=== PATIENT | female | born 1960 | race Caucasian/White ===

== ENCOUNTER 2019-04-16 08:51 | Inpatient (IN) | payer OTHER ==
[2019-04-16] VITALS (7 sets, daily range): BP systolic 85–100; BP diastolic 39–49
[~2019-04-16] VITALS: Ht 177.8 cm; Wt 99.5 kg
[~2019-04-16 08:51] MED LIST: ASPI325T4 PO; B CO PO; BUPIVACAINE/DEXTROSE MPF 0.75% 2 ML AMP IT ONE; CHOL20007 PO; EPINEPHrine HCL 1 MG/1 ML AMP ONE; FLEC100T21 PO; MAGN500C PO; MIDAZOLAM HCL 1MG/1ML-2 ML VIAL ONE; MORPHINE SULF(PF) 0.5MG/ML 10ML VIAL ONE; ONDANSETRON HCL 4 MG/2 ML VIAL ONE; PROPOFOL 10 MG/ML 20 ML IV ONE; SODIUM CHLORIDE LOCK 10 ML ONE; SUMA50TA16 PO; TRAM50TA2 PO; [UNRECOGNIZED DRUG - CODE] PO; [UNRECOGNIZED DRUG - CODE] PO; fentaNYL CITRATE 100 MCG/2 ML VL ONE
[2019-04-16] MEDS ORDERED: ACETAMINOPHEN IV 1000 MG/100ML (10MG/ML) IV ONE (09:45)
[2019-04-16] MEDS ORDERED: PREGABALIN CAPSULE 75 MG CAP PO ONE (09:45)
[2019-04-16] MEDS ORDERED: CELECOXIB 100 MG CAP PO ONE (09:45)
[2019-04-16] MEDS ORDERED: ceFAZolin 1GM/50ML 100 ML IV ONE (10:03)
[2019-04-16] MEDS ORDERED: ACETAMINOPHEN IV 100 ML IV ONE (10:03)
[2019-04-16] MEDS ORDERED: TRANEXAMIC ACID 20 ML ONE (10:05)
[2019-04-16] MEDS ORDERED: BUPIVACAINE W/ EPINEPH 0.25% INJ 50ML MDV ONE (10:05)
[2019-04-16] MEDS ORDERED: KETOROLAC TROMETH 30 MG/ML 1ML VIAL ONE (10:07)
[2019-04-16] MEDS ORDERED: VANCOMYCIN HCL 1000 MG VL ONE (10:08)
[2019-04-16] MEDS ORDERED: TETRACAINE 1% INJ 2 ML VIAL IJ ONE (10:09)
[2019-04-16] MEDS ORDERED: MORPHINE SULF(PF) 0.5MG/ML 10ML VIAL ONE (10:12)
[2019-04-16] MEDS ORDERED: NALOXONE HCL 0.4 MG/ML VIAL IV PRN (12:00)
[2019-04-16] MEDS ORDERED: METOCLOPRAMIDE HCL 5MG/ml INJ 2ml VIAL IV PRN (12:00)
[2019-04-16] MEDS ORDERED: fentaNYL CITRATE 100 MCG/2 ML VL IV PRN (12:00)
[2019-04-16] MEDS ORDERED: HYDROmorphone HCL 2 MG/ML VL IV PRN (12:00)
[2019-04-16] MEDS ORDERED: diphenhdrAMINE HCL 50 MG/1 ML VL IV PRN (12:00)
[2019-04-16] MEDS ORDERED: MORPHINE SULFATE 4 MG/ML SYR/VIAL IV PRN (12:00)
[2019-04-16] MEDS ORDERED: traMADol HCL 50 MG TAB PO PRN (13:00)
[2019-04-16] MEDS ORDERED: NITROGLYCERIN 0.4 MG SL TAB SL PRN (13:00)
[2019-04-16] MEDS ORDERED: MORPHINE SULF INJ 2 MG/ML SYRINGE 1ML IV PRN (13:00)
[2019-04-16] MEDS ORDERED: ACETAMINOPHEN 325 MG TAB PO PRN (13:00)
[2019-04-16] MEDS ORDERED: BISACODYL 5 MG EC TAB PO PRN (13:00)
[2019-04-16] MEDS ORDERED: DOCUSATE SOD 100 MG CAP PO ONE (13:45)
[2019-04-16] MEDS ORDERED: ENOXAPARIN SOD 40 MG/0.4 ML SYRINGE SC ONE (13:45)
--- NOTE | 2019-04-16 14:35 | NUR ---
Telemetry admit from PACU Patient admitted to Telemetry unit after SBAR received from Emy MONTEMAYOR. Patient oriented to primary RN, unit, room, bed, and unit policies regarding patient care and visiting hours. Patient now on continuous telemetry monitoring, tele box #80 and telemetry reading on arrival to unit is SR in the 70's . Patient placed on bedside oxygen, weighed by bed scale and encouraged to call if they need something. Surgical dressing to left knee, clean/dry and intact. Bed in lowest, locked position with side rails up x2. Fall precautions in place and call light within reach. All questions and concerns addressed, patient verbalized understanding. Will continue to monitor Q1hr/PRN.
[2019-04-16] MEDS: LACTATED RINGER'S 1,000 ML IV SCH (15:15)
[2019-04-16] MEDS ORDERED: INFLUENZA QUAD 2019-2020 0.5ml SYRG IM ONE (16:15)
[2019-04-16] MEDS: ceFAZolin 1GM/50ML 50 ML IV SCH ×2 (17:10→19:33)
[2019-04-16] MEDS: ACETYLCYSTEINE 20%(200MG/ML) SOL 4ML PO SCH ×2 (17:10→22:00)
[2019-04-16] MEDS: SODIUM CHLOR 0.9% PF (SALINE LOCK) 10ML VIAL/SYR IV SCH ×2 (17:11→22:33)
[2019-04-16] MEDS: CHOLECALCIFEROL (VITD3) 1,000 UNIT TAB PO SCH (17:11)
[2019-04-16] MEDS: ONDANSETRON HCL 4 MG/2 ML VIAL IV PRN (18:29)
--- NOTE | 2019-04-16 19:35 | NUR ---
Opening Shift Note Received report from Shira MONTEMAYOR. Assumed care of patient, awake and alert, family at bedside. No S/S of distress/SOB or pain. Instructed on POC and to call for assist PRN. Fall precaution measures in place, will continue to monitor for changes Q1hr and PRN.
[2019-04-16] MEDS ORDERED: METOPROLOL TARTRATE 1MG/1ML-5ML VIAL IV PRN (21:00)
[2019-04-16] MEDS: DOCUSATE SOD 100 MG CAP PO SCH (22:00)
[2019-04-16] MEDS: TAMBOCOR PO SCH (22:00)
[2019-04-17] VITALS (14 sets, daily range): BP systolic 94–135; BP diastolic 43–82
[2019-04-17] MEDS: ceFAZolin 1GM/50ML 50 ML IV SCH (01:07)
--- NOTE | 2019-04-17 05:45 | NUR ---
Respiratory note: PT REMOVED FROM CPAP PER PT REQUEST AND HAS BEEN PLACED ON A 1L NC. POC 98%, HR 73, RR 14. NO SOB NOTED. CONTINUOUS POX REMAINS ON AND FUNCTIONAL. ALARMS ARE ON AND AUDIBLE.
[2019-04-17] MEDS: SODIUM CHLOR 0.9% PF (SALINE LOCK) 10ML VIAL/SYR IV SCH ×3 (05:59→21:57)
[2019-04-17] MEDS ORDERED: METO25TA5 PO (06:52)
[2019-04-17 07:06] LABS: Basophils # (auto) 0 uL; Basophils % (auto) 0.1 % (0.0-2.0); Eosinophils # (auto) 0 uL; Hematocrit 34.3 % (36.0-46.0); Hemoglobin 11.6 g/dL (12.2-16.2); Lymphocytes # (auto) 0.9 uL; Lymphocytes % (auto) 8.9 % (10.0-50.0); Mean Corpuscular Hemoglobin 30.3 pg (28.0-32.0); Mean Corpuscular Hgb Conc. 33.9 g/dL (32.0-36.0); Mean Corpuscular Volume 89.3 fL (80.0-100.0); Monocytes # (auto) 0.7 uL; Monocytes % (auto) 6.9 % (0.0-12.0); Neutrophils # (auto) 8.2 uL; Neutrophils % (auto) 84.1 % (37.0-80.0); Platelet Count (auto) 176 10^3/uL (140-450); Red Blood Cells 3.84 10^6/uL (4.0-5.20); Red Cell Distribution Width 13.6 % (11.8-14.3); White Blood Cell 9.8 10^3/uL (4.4-10.8)
[2019-04-17 07:15] LABS: Potassium 4.3 mmol/L (3.5-5.1)
[2019-04-17 07:19] LABS: Albumin 3.3 g/dL (3.4-5.0); BUN/Creatinine Ratio 21.9; Calcium 8.2 mg/dL (8.5-10.1); Magnesium 2.2 mg/dL (1.6-2.6)
[2019-04-17 07:22] LABS: Bilirubin, Total 0.4 mg/dL (0.2-1.0); Total Protein 6.2 g/dL (6.4-8.2)
--- NOTE | 2019-04-17 07:35 | NUR ---
OPENING NOTE Assumed care of patient from NOC RNSilvana. Patient awake and alert with no S/S of distress/SOB or pain. Nasal cannula in place, connected to 1L O2. Surgical dressing to left knee, clean /dry/intact and CPM machine is in use. Right leg connected to SCD. Bed in lowest, locked position with side rails up x2. Fall precautions in place and call light within reach. Instructed on POC and to call for assistance PRN, verbalized understanding. Will continue to monitor for changes Q1hr and PRN.
[2019-04-17] MEDS: LACTATED RINGER'S 1,000 ML IV SCH ×3 (08:57→18:06)
[2019-04-17] MEDS ORDERED: METOPROLOL TARTRATE 25 MG TAB PO SCH (10:00)
[2019-04-17] MEDS: ENOXAPARIN SOD 40 MG/0.4 ML SYRINGE SC SCH (11:11)
[2019-04-17] MEDS: DOCUSATE SOD 100 MG CAP PO SCH ×2 (11:11→21:58)
[2019-04-17] MEDS: ACETYLCYSTEINE 20%(200MG/ML) SOL 4ML PO SCH ×2 (11:12→22:00)
[2019-04-17] MEDS: OXYCODONE W/ ACETAMINOPHEN 5/325MG TABLET PO PRN ×2 (11:13→15:30)
[2019-04-17] MEDS: TAMBOCOR PO SCH ×2 (11:29→21:58)
[2019-04-17] MEDS: METOPROLOL 25 MG PO SCH ×2 (11:29→21:57)
--- NOTE | 2019-04-17 13:00 | NUR ---
IV Infiltrated IV removed, catheter intact and pressure dressing applied. IV access obtained, via clean sterile technique by inserting 22 gauge catheter at left forearm after 1 attempt. IV secured properly. No trauma to site. Patient tolerated well.
[2019-04-17] MEDS: MORPHINE SULFATE 4 MG/ML SYR/VIAL IV PRN ×3 (13:06→21:35)
[2019-04-17] MEDS: ONDANSETRON HCL 4 MG/2 ML VIAL IV PRN ×3 (13:07→21:35)
--- NOTE | 2019-04-17 15:09 | NUR ---
Report Received report received for Marina MONTEMAYOR. Patient currently awake and alert laying down in bed. Patient is on room air with No S/S of distress/SOB. Pt C/O pain in knee 04/05. will dry cleaning teacher Percocet. Patient educated on fall precautions. Bed is in lowest position, wheels are locked, side rails up x2, and call light is within reach. Encouraged patient to call as needed. Will continue to monitor changes q1hr and PRN.
--- NOTE | 2019-04-17 15:15 | NUR ---
RECEIVED REPORT FROM RESOURCE NURSE ASSUMED CARE OF PT. PATIENT IS AWAKE AND ALERT. NO SOB OR SIGNS OF DISTRESS NOTED. BED IS IN LOWEST POSITION WITH SIDE RAILS UP X2. INSTRUCTED PT TO CALL FOR ASSISTANCE PRN. WILL CONTINUE TO MONITOR.
[2019-04-17] MEDS: CHOLECALCIFEROL (VITD3) 1,000 UNIT TAB PO SCH (15:31)
--- NOTE | 2019-04-17 16:58 | NUR ---
Dr. bolton at bedside Updated on POC. Patient pain seems uncontrolled at this time. Received new orders at this time. orders carried out in [facility]. Will continue to monitor q1h and prn.
--- NOTE | 2019-04-17 17:05 | NUR ---
Report Given Patient awake and alert. No S/S of distress/SOB. Pain still 10/10, per Dr. bolton will give additional Morphine IV now and Zofran. Care endorsed to Will SIM.
--- NOTE | 2019-04-17 17:08 | NUR ---
assessment Patient is a 58 year old female who is alert and oriented. Patients cognitive abilities are intact. Prior to admission patient lived home with her sig other Geni Cannon and functioned independently. Patient informed me she is able to care for her own ADLs. Per patient she will return home to her prior living arrangements post discharge and Geni will transport her home. Patient has been admitted for left knee replacement. Patient will need home health for PT, fww, and CPM. Will RN has been notified. Patients PCP is Dr Lacy. Patient feels safe returning home on discharge. I informed patient she has a right to speak to a social media editor regarding all care. I informed patient she has a right to participate in any and all discharge planning. Patient has a POA and advanced directive. Patient verbalized understanding and agreed to discharge plan. Addendum: 04/17/19 at 1712 by Jasmin WARNER Amended: Links added.
[2019-04-17] MEDS ORDERED: MORPHINE SULF INJ 2 MG/ML SYRINGE 1ML IV ONE (17:15)
[2019-04-17] MEDS ORDERED: HYDROMORPHONE PCA IN NS 50 ML IV SCH (19:28)
--- NOTE | 2019-04-17 19:30 | NUR ---
Opening Shift Note Assumed care of patient, awake and alert. No S/S of distress/SOB. Family at bedside. Instructed on POC and to call for assist PRN, will continue to monitor for changes Q1hr and PRN.
--- NOTE | 2019-04-17 19:45 | NUR ---
Dr. Oseguera at bedside.
--- NOTE | 2019-04-17 22:30 | NUR ---
Began DIP FILLER pump as ordered. VS WNL. Patient unable to tolerate CPM, CPM removed. Provided patient education regarding DIP FILLER pump. Will continue to monitor.
--- NOTE | 2019-04-17 23:30 | NUR ---
Dressing change performed on left knee. Ethel are clean, dry and intact with no drainage. No drainage noted on original dressing. Cleansed with wound cleanser spray and patted dry with gauze. Placed island dressing and covered with kevin bandage. Patient tolerated well.
[2019-04-18] MEDS: OXYCODONE W/ ACETAMINOPHEN 5/325MG TABLET PO PRN (01:25)
[2019-04-18 04:57] VITALS: BP 115/68
[2019-04-18] MEDS: LACTATED RINGER'S 1,000 ML IV SCH ×2 (04:57→14:19)
[2019-04-18] MEDS: SODIUM CHLOR 0.9% PF (SALINE LOCK) 10ML VIAL/SYR IV SCH ×3 (06:24→22:59)
[2019-04-18] MEDS: DOCUSATE SOD 100 MG CAP PO SCH ×3 (06:24→23:01)
--- NOTE | 2019-04-18 07:18 | NUR ---
Opening Shift Note Assumed care of patient, patient awake and alert laying down in bed. Patient is on 2 L NC with even and unlabored respirations. No S/S of distress/SOB or pain at this time. CPM in place with SCD'S. LINK ASSEMBLER still currently running. Order to D/C present per Dr. Austin. LINK ASSEMBLER stopped at this time. POC regarding pain reviewed with patient. patient verbalizes understanding. Bed is in lowest position, wheels are locked, side rails up x2, and call light is within reach. Patient educated regarding fall precaution and instructed to not get up without help. Patient verbalized understanding. Instructed on POC and to call for assist PRN, will continue to monitor for changes Q1hr and PRN.
[2019-04-18 07:44] LABS: Hematocrit 35.2 % (36.0-46.0); Hemoglobin 12.1 g/dL (12.2-16.2)
--- NOTE | 2019-04-18 07:48 | NUR ---
Respiratory note: PT IS AWAKE, AND ALERT. NO RESPIRATORY DISTRESS NOTED. SPO2 97% ON RA, HR 69, RR 18, BS CLEAR T/O. PT INFORMED TO PUSH CALL BUTTON IF INCREASED WOB, SOB, OR WHEEZING OCCURS.
--- NOTE | 2019-04-18 08:25 | NUR ---
AT BEDSIDE DR. COSME AT BEDSIDE EVALUATING PT. INFORMED DR. RE: PATIENT POOR PAIN CONTROL YESTERDAY/THROUGH THE NIGHT AND CURRENT POC RE: PAIN. AGREES WITH CURRENT PLAN SET UP BY DR. SANCHEZ. NO NEW ORDERS RECEIVED AT THIS TIME. WILL CONTINUE TO MONITOR Q1H AND PRN.
[2019-04-18 09:00] VITALS: BP 142/82
[2019-04-18] MEDS: oxyCODONE ER 10 MG TAB PO SCH ×2 (09:56→23:01)
[2019-04-18] MEDS: ENOXAPARIN SOD 40 MG/0.4 ML SYRINGE SC SCH (09:57)
[2019-04-18] MEDS: TAMBOCOR PO SCH ×2 (09:58→23:01)
[2019-04-18] MEDS: METOPROLOL 25 MG PO SCH ×2 (09:58→23:00)
[2019-04-18] MEDS: ACETYLCYSTEINE 20%(200MG/ML) SOL 4ML PO SCH ×2 (10:00→22:00)
--- NOTE | 2019-04-18 10:40 | NUR ---
PT WITH PATIENT. PT WITH PATIENT. PT UP WALKING WITH WALKER IN HALLWAY. PER PATIENT, PAIN IS STARTING COME BACK, WILL CIGAR PACKER AND SHADER PRN DILAUDID. WILL CONTINUE TO MONITOR Q1H AND PRN.
--- NOTE | 2019-04-18 11:02 | NUR ---
I called [employer] Safety Counselor Enriqueta [phone] and left message asking who to use for home health and authorization for same-also faxed request/order to her at [phone].
[2019-04-18] MEDS: ONDANSETRON HCL 4 MG/2 ML VIAL IV PRN ×2 (11:21→15:19)
[2019-04-18] MEDS: HYDROmorphone HCL 2 MG/ML VL IV PRN ×2 (11:21→15:18)
[2019-04-18 13:00] VITALS: BP 113/42
[2019-04-18] MEDS: CHOLECALCIFEROL (VITD3) 1,000 UNIT TAB PO SCH (13:51)
[2019-04-18] MEDS: KETOROLAC TROMETH 30 MG/ML 1ML VIAL IV SCH ×2 (13:51→18:00)
--- NOTE | 2019-04-18 14:00 | NUR ---
PATIENT STATES HAS PAIN IN UPPER POSTERIOR THIGH PATIENT CALLED STATING SHE HAS SUDDEN PAIN IN UPPER POSTERIOR THIGH AFTER BEING ON CPM NOW. CPM WAS JUST REMOVED TO BE FITTED FOR HOME CPM MACHINE. NOTED SMALL SKIN TEAR ON LEFT UPPER POSTERIOR THIGH. WOUND PHOTOS TAKEN. WOUND CLEANSED WITH NORMAL SALINE, PATTED DRY, COVERED WITH NON ADHESIVE FOAM DRESSING AND COVERED WITH TEGADERM. PATIENT TOLERATED WELL. CONTINUE TO MONITOR Q1H AND PRN.
--- NOTE | 2019-04-18 14:12 | NUR ---
I received a message from Enriqueta at [facility] referring me to call Casting Plug Assembler Alex [phone]-I called and left a message asking for authorization for home health as well as a list of participating providers.
--- NOTE | 2019-04-18 16:33 | NUR ---
D/C Planning Per SS consult for home physical therapy for physical therapy, FWW and CPM machine. Noah Ph:) from [facility] department advised me FWW and CPM has been deliver to Pt at bedside. Home Health is pending due to waiting on Dianne CASE Ph:) to fax me a list of contacted providers.
[2019-04-18 17:00] VITALS: BP 108/56
--- NOTE | 2019-04-18 19:13 | NUR ---
Closing Note Patient awake and alert laying in bed currently on CPM machine. Patient is on 2 L NC with even and unlabored respirations with no S/S of distress/SOB or pain. Care endorsed to NOC SIM Zamora.
--- NOTE | 2019-04-18 19:30 | NUR ---
Opening Shift Note Assumed care of patient, awake and alert. No S/S of distress/SOB. Instructed on POC and to call for assist PRN, will continue to monitor for changes Q1hr and PRN.
[2019-04-18 21:50] VITALS: BP 114/53
--- NOTE | 2019-04-18 22:00 | NUR ---
Patient states that she is 6 of 10 pain which is tolerable. Explained to patient regarding scheduled pain medication.
[2019-04-19] VITALS (7 sets, daily range): BP systolic 104–124; BP diastolic 53–70
[2019-04-19] MEDS: KETOROLAC TROMETH 30 MG/ML 1ML VIAL IV SCH ×4 (00:22→17:59)
[2019-04-19] MEDS: LACTATED RINGER'S 1,000 ML IV SCH ×3 (00:52→20:57)
--- NOTE | 2019-04-19 04:30 | NUR ---
Performed bladder training throughout the night and patient able to sit on commode in the am with minimal assistance. Patient only able to pass gas, no BM reported. Patient tolerated well.
[2019-04-19] MEDS: OXYCODONE W/ ACETAMINOPHEN 5/325MG TABLET PO PRN ×2 (05:00→20:59)
[2019-04-19] MEDS: SODIUM CHLOR 0.9% PF (SALINE LOCK) 10ML VIAL/SYR IV SCH ×3 (05:59→22:00)
[2019-04-19] MEDS: DOCUSATE SOD 100 MG CAP PO SCH ×3 (06:00→22:00)
[2019-04-19 07:39] LABS: Hematocrit 33.8 % (36.0-46.0); Hemoglobin 11.3 g/dL (12.2-16.2)
--- NOTE | 2019-04-19 07:40 | NUR ---
Opening Note Received report from masseur/masseuse RN. Patient is awake, alert and oriented x4. No signs or symptoms of distress noted at this time. Dressing to left knee , clean dry and intact. Patient is on room air, respirations even and unlabored. Reviewed plan of care with patient, patient verbalized understanding. Bed in low and locked position, call light within reach. Will continue to monitor Q1 hour and PRN.
--- NOTE | 2019-04-19 08:45 | NUR ---
Carmen catheter removed Order to discontinue Carmen catheter. Carmen removed with clean technique following deflation of balloon. Patient tolerated well, patient denies pain. Patient instructed to call for assistance. Will continue to monitor Q1 hour and PRN.
--- NOTE | 2019-04-19 09:07 | NUR ---
Spoke with Nisha regarding home health States she will let me know when it is arranged.
[2019-04-19] MEDS: ENOXAPARIN SOD 40 MG/0.4 ML SYRINGE SC SCH (09:44)
[2019-04-19] MEDS: oxyCODONE ER 10 MG TAB PO SCH ×2 (09:44→22:51)
[2019-04-19] MEDS: METOPROLOL 25 MG PO SCH ×2 (10:00→21:59)
[2019-04-19] MEDS: TAMBOCOR PO SCH ×2 (10:00→22:00)
--- NOTE | 2019-04-19 10:15 | NUR ---
Patient voided Patient assisted to bedside commode, patient voided. Patient assisted back to bed. Will continue to monitor Q1 hour and PRN.
[2019-04-19] MEDS: CHOLECALCIFEROL (VITD3) 1,000 UNIT TAB PO SCH (15:46)
--- NOTE | 2019-04-19 16:40 | NUR ---
Spoke with Nisha Unable to arrange home health for the patient today and states it is not safe to discharge the patient without having services arranged. Patient to discharge tomorrow. Charge nurse Sugey weinstein. WIll continue to monitor Q1 hour and PRN.
--- NOTE | 2019-04-19 16:49 | NUR ---
D/C Vandana Dean from [employer] faxed me three contracted providers for home health [facility], [place], [facility] and [facility]. Contacted and faxed [place] and [facility]. Per Janice from [place] they are not contacted with [facility]. Per Brenda from [facility] they do not cover [facility]. I was unable to get a hold of [facility] due to incorrect phone. Billie from [facility] from advised me if a KIANNA is done they will be able to tale Pt. Informed Lobby Concierge regarding home health and she stated she will follow up with insurance. Informed SIM Augustin.
--- NOTE | 2019-04-19 17:20 | NUR ---
Left Message for Dr. Alcantara Left message to notify him unable to discharge patient today, unable to arrange home health.
--- NOTE | 2019-04-19 19:12 | NUR ---
Closing Note Report given to night patrol inspector RN. No signs or symptoms of distress noted at this time.
[2019-04-20] MEDS: SODIUM CHLOR 0.9% PF (SALINE LOCK) 10ML VIAL/SYR IV SCH ×3 (06:17→23:11)
[2019-04-20] MEDS: OXYCODONE W/ ACETAMINOPHEN 5/325MG TABLET PO PRN ×3 (06:18→18:16)
[2019-04-20] MEDS: DOCUSATE SOD 100 MG CAP PO SCH ×3 (06:18→23:10)
[2019-04-20 06:28] VITALS: BP 115/64
[2019-04-20] MEDS: LACTATED RINGER'S 1,000 ML IV SCH ×2 (06:57→12:34)
--- NOTE | 2019-04-20 07:40 | NUR ---
Opening Note Received report from telecommunications clerk RN. Patient is awake, alert and oriented x4. No signs or symptoms of distress noted at this time. Dressing to left knee , clean dry and intact. Patient is on room air, respirations even and unlabored. Reviewed plan of care with patient, patient verbalized understanding. Bed in low and locked position, call light within reach. Will continue to monitor Q1 hour and PRN.
[2019-04-20] MEDS: oxyCODONE ER 10 MG TAB PO SCH ×2 (08:30→23:10)
[2019-04-20] MEDS: ENOXAPARIN SOD 40 MG/0.4 ML SYRINGE SC SCH (08:31)
[2019-04-20] MEDS: METOPROLOL 25 MG PO SCH ×2 (08:34→23:11)
[2019-04-20] MEDS: TAMBOCOR PO SCH ×2 (08:35→23:11)
[2019-04-20 09:00] VITALS: BP 111/56
--- NOTE | 2019-04-20 10:01 | NUR ---
0950 04/20/19 I received a message from [employer] [phone] letting me know that they did extend the inpatient authorization on this patient through yesterday 04/19. He also let me know that for the home health request I needed to call their department at [phone]. I called provided number and spoke with Dorys and explained that none of the three provided home health agencies could service the patient-requesting that they do an SANNA with [facility]. Per Dorys I need to provide her with their tax ID and address before she can start the process.
[2019-04-20] MEDS: ONDANSETRON HCL 4 MG/2 ML VIAL IV PRN (10:50)
[2019-04-20 13:00] VITALS: BP 102/56
--- NOTE | 2019-04-20 14:49 | NUR ---
1445 04/20/19 I spoke with Dianne-Helmet Hat Puncher with [employer] [phone]-she has spoken with Harvey at [facility], [employer] is working on the SANNA and she will call me back when it is complete.
[2019-04-20] MEDS: CHOLECALCIFEROL (VITD3) 1,000 UNIT TAB PO SCH (15:08)
--- NOTE | 2019-04-20 16:50 | NUR ---
Spoke with Kristina from case management States home health has still not been arranged for patient. Will update patient on plan of care.
[2019-04-20 17:00] VITALS: BP 121/65
--- NOTE | 2019-04-20 19:19 | NUR ---
Closing Note Report given to material handler 1st shift RN. No signs or symptoms of distress noted at this time. Family at bedside.
--- NOTE | 2019-04-20 19:30 | NUR ---
Opening Shift Note Assumed care of patient, awake and alert. No S/S of distress/SOB or pain. Dressing to left knee noted to be clean, dry, and intact. Patient on CPM, tolerating well. Bed in lowest locked position, side rails up x2, call light within reach. Instructed on POC and to call for assist PRN, will continue to monitor for changes Q1hr and PRN.
[2019-04-20 22:32] VITALS: BP 108/51
[2019-04-21] MEDS: LACTATED RINGER'S 1,000 ML IV SCH ×2 (02:57→12:57)
--- NOTE | 2019-04-21 05:26 | NUR ---
Bowel Movement Patient passed one large, soft, light brown stool in toilet. No s/s of distress, will continue care.
[2019-04-21] MEDS: SODIUM CHLOR 0.9% PF (SALINE LOCK) 10ML VIAL/SYR IV SCH ×2 (05:28→14:00)
[2019-04-21] MEDS: OXYCODONE W/ ACETAMINOPHEN 5/325MG TABLET PO PRN (05:28)
[2019-04-21] MEDS: DOCUSATE SOD 100 MG CAP PO SCH ×2 (05:28→14:00)
--- NOTE | 2019-04-21 05:30 | NUR ---
Dressing Change Dressing change performed on left knee. Chris are clean, dry and intact with minimal serosanguineous drainage. Cleansed with wound cleanser spray and patted dry with sterile 4 X 4 gauze. Placed island dressing and covered with kevin bandage. Patient tolerated well. Will continue care.
[2019-04-21 05:32] VITALS: BP 94/63
--- NOTE | 2019-04-21 06:59 | NUR ---
Closing Note Patient lying in bed, eyes closed, respirations even and unlabored, appears asleep. Patient awakens to name and touch. No s/s of distress. Bed in lowest locked position, side rails up x2, call light within reach. Care endorsed to dayshift RN.
[2019-04-21 09:23] VITALS: BP 119/66
[2019-04-21] MEDS: ENOXAPARIN SOD 40 MG/0.4 ML SYRINGE SC SCH (10:29)
[2019-04-21] MEDS: oxyCODONE ER 10 MG TAB PO SCH (10:29)
[2019-04-21] MEDS: METOPROLOL 25 MG PO SCH (10:30)
[2019-04-21] MEDS: TAMBOCOR PO SCH (10:30)
--- NOTE | 2019-04-21 10:56 | NUR ---
SPOKE TO NGHIA WITH [employer] PHONE NUMBER [phone]. NGHIA VERBALIZED PATIENT WAS APPROVED FOR [facility] FOR 3 MONTHS.
[2019-04-21 13:37] VITALS: BP 106/55
[2019-04-21] MEDS: CHOLECALCIFEROL (VITD3) 1,000 UNIT TAB PO SCH (14:00)
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
== END 2019-04-21 14:16 | disposition home health service (06) | DRG 470 ==
LOC: SUR 08:51 → TELE-WESTW 14:30
PROVIDERS: ADMIT Orthopaedic Surgery Adult Reconstructive Orthopaedic Surgery; ATTEND Orthopaedic Surgery Adult Reconstructive Orthopaedic Surgery
PROC: 8E0YXBZ Computer Assisted Procedure of Lower Extremity (ICD-10-PCS; 2019-04-16)
PROC: 5A09357 Assistance with Respiratory Ventilation, Less than 24 Consecutive Hours, Continuous Positive Airway Pressure (ICD-10-PCS; 2019-04-16)
PROC: 0SRD0J9 Replacement of Left Knee Joint with Synthetic Substitute, Cemented, Open Approach (ICD-10-PCS; principal; 2019-04-16 10:26)
PROC: 5A09357 Assistance with Respiratory Ventilation, Less than 24 Consecutive Hours, Continuous Positive Airway Pressure (ICD-10-PCS; 2019-04-17)
PROC: 5A09357 Assistance with Respiratory Ventilation, Less than 24 Consecutive Hours, Continuous Positive Airway Pressure (ICD-10-PCS; 2019-04-18)
PROC: 5A09357 Assistance with Respiratory Ventilation, Less than 24 Consecutive Hours, Continuous Positive Airway Pressure (ICD-10-PCS; 2019-04-19)
PROC: 5A09357 Assistance with Respiratory Ventilation, Less than 24 Consecutive Hours, Continuous Positive Airway Pressure (ICD-10-PCS; 2019-04-20)
DX: M17.12 Unilateral primary osteoarthritis, left knee (principal); I48.19 Other persistent atrial fibrillation; I49.5 Sick sinus syndrome; G47.30 Sleep apnea, unspecified; G43.909 Migraine, unspecified, not intractable, without status migrainosus; K43.9 Ventral hernia without obstruction or gangrene; Z88.6 Allergy status to analgesic agent
CPT/HCPCS: 36415; 73560; 80053; 83735; 85014; 85018; 85025; 86850; 86900; 86901; 94660; 97110; 97116; 97530; C1713; G0378; J0131; J0171; J0690; J1885; J2250; J2405; J2704

== ENCOUNTER 2021-01-14 10:07 | Day surgery (SDC) | payer OTHER ==
[2021-01-09 14:50] LABS: Urine Bacteria FEW /hpf (None Seen); Urine Blood Negative /uL (Negative); Urine Specific Gravity 1.006 (1.001-1.035); Urine WBC 6 /hpf (0 - 5)
[2021-01-09 14:59] LABS: Albumin 4.3 g/dL (3.4-5.0); Basophils # (auto) 0 10 ^3/uL (0-0.2); Basophils % (auto) 0.8 % (0.0-2.0); Calcium 8.5 mg/dL (8.5-10.1); Eosinophils # (auto) 0.2 10 ^3/uL (0-0.8); Eosinophils % (auto) 3.5 % (0.0-7.0); Hematocrit 36.9 % (36.0-46.0); Hemoglobin 12.4 g/dL (12.2-16.2); Lymphocytes # (auto) 1.7 10 ^3/uL (0.4-5.4); Lymphocytes % (auto) 28.9 % (10.0-50.0); Mean Corpuscular Hgb Conc. 33.5 g/dL (32.0-36.0); Mean Corpuscular Volume 89.6 fL (80.0-100.0); Monocytes # (auto) 0.5 10 ^3/uL (0-1.3); Monocytes % (auto) 8.2 % (0.0-12.0); Neutrophils # (auto) 3.3 10 ^3/uL (1.6-8.6); Neutrophils % (auto) 58.6 % (37.0-80.0); Potassium 3.8 mmol/L (3.5-5.1); Red Blood Cells 4.12 10^6/uL (4.0-5.20); Red Cell Distribution Width 13.5 % (11.8-14.3); White Blood Cell 5.7 10^3/uL (4.4-10.8)
[2021-01-09 15:02] LABS: BUN/Creatinine Ratio 29.5; Bilirubin, Total 0.3 mg/dL (0.2-1.0); Total Protein 7.7 g/dL (6.4-8.2)
[~2021-01-14] VITALS: Ht 177.8 cm; Wt 84.8 kg
[~2021-01-14 10:07] MED LIST changes: +ASPI-231 PO; -ASPI325T4 PO; -BUPIVACAINE/DEXTROSE MPF 0.75% 2 ML AMP IT ONE; -EPINEPHrine HCL 1 MG/1 ML AMP ONE; +METO25TA5 PO; -MIDAZOLAM HCL 1MG/1ML-2 ML VIAL ONE; -MORPHINE SULF(PF) 0.5MG/ML 10ML VIAL ONE; +NAPR375T27 PO; -ONDANSETRON HCL 4 MG/2 ML VIAL ONE; +POTA1080 PO; -PROPOFOL 10 MG/ML 20 ML IV ONE; +ROSU5TAB5 PO; -SODIUM CHLORIDE LOCK 10 ML ONE; -TRAM50TA2 PO; -[UNRECOGNIZED DRUG - CODE] PO; -[UNRECOGNIZED DRUG - CODE] PO; -fentaNYL CITRATE 100 MCG/2 ML VL ONE
[2021-01-14] MEDS ORDERED: ceFAZolin 1GM/50ML 100 ML IV ONE (10:23)
[2021-01-14] MEDS ORDERED: fentaNYL CITRATE 100 MCG/2 ML VL ONE (11:40)
[2021-01-14] MEDS ORDERED: SODIUM CHLORIDE LOCK 10 ML ONE (11:40)
[2021-01-14] MEDS ORDERED: PROPOFOL 10 MG/ML 20 ML IV ONE (11:40)
[2021-01-14] MEDS ORDERED: MIDAZOLAM HCL 1MG/1ML-2 ML VIAL ONE (11:40)
[2021-01-14] MEDS ORDERED: ONDANSETRON HCL 4 MG/2 ML VIAL ONE (11:40)
[2021-01-14] MEDS ORDERED: HYDROmorphone HCL 2 MG/ML VL IV PRN (12:00)
[2021-01-14] MEDS ORDERED: MORPHINE SULFATE 4 MG/ML SYR/VIAL IV PRN (12:00)
[2021-01-14] MEDS ORDERED: METOCLOPRAMIDE HCL 5MG/ml INJ 2ml VIAL IV PRN (12:00)
[2021-01-14] MEDS ORDERED: LIDOCAINE 1% HCL (LOCAL ANESTH.) INJ 20ML MDV ONE (12:33)
[2021-01-14] MEDS ORDERED: BUPIVACAINE 0.5% MPF INJ 30ML SDV IJ ONE (12:34)
[2021-01-14] MEDS ORDERED: HYDROmorphone HCL 2 MG/ML VL ONE (15:01)
[2021-01-14 15:15] VITALS: BP 124/73
== END 2021-01-14 15:35 | disposition home or self-care (01) ==
LOC: SUR 10:07
PROVIDERS: ATTEND Podiatrist
DX: M76.821 Posterior tibial tendinitis, right leg (principal); I48.91 Unspecified atrial fibrillation; F43.10 Post-traumatic stress disorder, unspecified; I49.5 Sick sinus syndrome; G47.33 Obstructive sleep apnea (adult) (pediatric); I20.9 Angina pectoris, unspecified; Q66.6 Other congenital valgus deformities of feet; Z88.0 Allergy status to penicillin; Z95.0 Presence of cardiac pacemaker; Z96.652 Presence of left artificial knee joint; Z98.890 Other specified postprocedural states; Z79.899 Other long term (current) drug therapy; Z86.16 Personal history of COVID-19; Z87.891 Personal history of nicotine dependence; Z82.49 Family history of ischemic heart disease and other diseases of the circulatory system
CPT/HCPCS: 28300; 36415; 73600; 76000; 80053; 81001; 82962; 85025; C1713; J0690; J1170; J2001; J2250; J2405; J2704; J3010; J3490; U0003

== ENCOUNTER → 2021-06-10 | Outpatient (CLI) | payer OTHER ==
[~2021-06-10] MED LIST changes: -ASPI-231 PO; +ASPI1TAB20 PO; +FLEC100T PO; -FLEC100T21 PO
== END | disposition home or self-care (01) ==
LOC: LAB 15:33
PROVIDERS: ATTEND Podiatrist
DX: M76.821 Posterior tibial tendinitis, right leg (principal)
CPT/HCPCS: 36415; 82565; 84520